=== PATIENT | male | born 1960 | race American Indian/Alaskan Native ===

== ENCOUNTER 2019-03-03 19:17 | Emergency (ER) | payer MEDICARE ==
[2019-03-03 20:06] VITALS: BP 167/111
--- NOTE | 2019-03-03 20:13 | Emergency Department Report ---
Blank Doc - Documentation Documentation: 58 y o male presents with right foot pain and swelling to feet wants to have it drained
[2019-03-03] MEDS ORDERED: ANTIBIOTIC OINT TP ONE (21:00)
[2019-03-03] MEDS ORDERED: BOOSTRIX IM ONE (21:00)
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
== END 2019-03-03 22:32 | disposition home or self-care (01) ==
LOC: ED 19:17
DX: S60.511A Abrasion of right hand, initial encounter (principal); S90.821A Blister (nonthermal), right foot, initial encounter; I10 Essential (primary) hypertension; F17.200 Nicotine dependence, unspecified, uncomplicated; X19.XXXA Contact with other heat and hot substances, initial encounter; Y93.01 Activity, walking, marching and hiking; Y92.89 Other specified places as the place of occurrence of the external cause; Y99.8 Other external cause status
CPT/HCPCS: 90471; 90715

== ENCOUNTER 2020-03-09 11:31 | Emergency (ER) | payer MEDICARE ==
[2020-03-09 11:53] VITALS: BP 132/87
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
== END 2020-03-09 16:47 | disposition home or self-care (01) ==
LOC: ED 11:31
DX: F99 Mental disorder, not otherwise specified (principal); I10 Essential (primary) hypertension; M19.90 Unspecified osteoarthritis, unspecified site; F17.200 Nicotine dependence, unspecified, uncomplicated; F41.9 Anxiety disorder, unspecified; Z79.899 Other long term (current) drug therapy
CPT/HCPCS: 99283

== ENCOUNTER 2020-08-04 06:50 | Emergency (ER) | payer MEDICARE ==
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
[2020-08-04 11:09] LABS: Basophils # (Auto) 0.1 K/mm3 (0.0-0.1); Basophils % (Auto) 0.7 % (0.0-1.8); Eosinophils % (Auto) 0.2 % (0.0-4.3); Hemoglobin 14.4 gm/dl (11.8-15.2); Lymphocytes # (Auto) 1.6 K/mm3 (1.2-5.4); Lymphocytes % (Auto) 17.9 % (13.4-35.0); Mean Corpuscular HGB Conc 34 % (32-34); Mean Corpuscular Volume 93 fl (84-94); Monocytes # (Auto) 0.7 K/mm3 (0.0-0.8); Platelet Count 188 K/mm3 (140-440); Red Cell Distribution Width 13.8 % (13.2-15.2)
[2020-08-04 11:16] LABS: INR 0.94 (0.87-1.13)
[2020-08-04 11:17] LABS: Partial Thromboplastin Time 28.8 Sec. (24.2-36.6)
--- NOTE | 2020-08-04 11:28 | XRay Report ---
XR chest routine 2V INDICATION / CLINICAL INFORMATION: Chest Pain. COMPARISON: 04/06/2020 FINDINGS: SUPPORT DEVICES: None. HEART /PULMONARY VASCULATURE: No significant abnormality. LUNGS / PLEURA: No significant pulmonary or pleural abnormality. No pneumothorax. ADDITIONAL FINDINGS: Scoliotic curvature with posterior fixation hardware demonstrates no gross compl ication. Large amount of stool present within the colon. IMPRESSION: 1. No acute chest process. 2. Large amount stool within the partially imaged colon, may reflect constipation. Signer Name: Jonas Villarreal MD Signed: 08/04/2020 11:24 AM Workstation Name: [id number]
[2020-08-04 12:38] LABS: BUN/Creatinine Ratio 12; Blood Urea Nitrogen 12 mg/dL (9-20); Calcium 9.5 mg/dL (8.4-10.2); Hemolysis Index 2
[2020-08-04 13:04] LABS: Creatine Kinase MB 7.8 ng/mL (0.0-4.0)
[2020-08-04 13:56] VITALS: BP 150/87
== END 2020-08-04 13:28 | disposition home or self-care (01) ==
LOC: ED 06:50
DX: R07.89 Other chest pain (principal); R01.1 Cardiac murmur, unspecified; I10 Essential (primary) hypertension; M19.91 Primary osteoarthritis, unspecified site; Z98.890 Other specified postprocedural states; Z79.1 Long term (current) use of non-steroidal anti-inflammatories (NSAID); Z79.899 Other long term (current) drug therapy
CPT/HCPCS: 36415; 71046; 80048; 82550; 82553; 83880; 84484; 85025; 85610; 85730; 93005

== ENCOUNTER 2021-03-06 13:46 | Emergency (ER) | payer MEDICARE ==
--- NOTE | 2021-03-06 14:37 | Emergency Department Report ---
ED Chest Pain HPI - General Chief Complaint: Chest Pain Stated Complaint: WEAKNESS,CHEST PAIN Time Seen by Provider: 03/06/21 14:01 Source: EMS Mode of arrival: Stretcher Limitations: No Limitations - History of Present Illness Initial Comments: This is a 60-year-old -[place] male presents to the emergency department via EMS from home with complaint of midsternal chest pain that started around 11 AM this morning. Patient says that he had a fall in which his legs "gave out." He denies hitting his head or any loss of consciousness. He denies any shortness of breath, fever, cough, back pain, lower extremity swelling. No recent travel or sick contacts at home. He has a past medical history of hypertension. Patient appears to have a psychiatric history as well. He is a tobacco smoker but denies any illicit drugs or any alcohol use/abuse. The patient has not taken anything, nor receive anything, for his symptoms prior to presentation today. He says that the chest pain is currently about a 7 out of 10 in intensity. No known aggravating or alleviating factors. Severity scale (0 -10): 0 - Related Data Previous Rx's Medication Instructions Recorded Last Taken Type Quetiapine Fumarate [SEROquel] 50 mg PO QHS 30 Days #30 tab 03/09/20 Unknown Rx Trazodone HCl [traZODone] 300 mg PO QHS 30 Days #30 tab 03/09/20 Unknown Rx Ibuprofen [Motrin 600 MG tab] 600 mg PO Q8H PRN #30 tablet 04/06/20 Unknown Rx traMADoL [Ultram 50 MG tab] 50 mg PO Q6HR PRN #12 tablet 04/06/20 Unknown Rx Allergies Allergy/AdvReac Type Severity Reaction Status Date / Time No Known Allergies Allergy Verified 04/06/20 14:23 Heart Score - HEART Score History: Slightly suspicious EKG: Normal Age: 45-65 Risk factors: 1-2 risk factors Troponin: < normal limit HEART Score: 2 - EKG Read Time Time EKG Completed: 16:07 EKG Read Time: 16:10 - Critical Actions Critical Actions: 0-3 pts:0.9-1.7%risk of adverse cardiac event.Candidate for discharge ED Review of Systems ROS: Stated complaint: WEAKNESS,CHEST PAIN Other details as noted in HPI Comment: All other systems reviewed and negative Constitutional: denies: chills, fever Eyes: denies: eye pain, vision change ENT: denies: ear pain, throat pain Respiratory: denies: cough, shortness of breath Cardiovascular: chest pain. denies: palpitations Gastrointestinal: denies: abdominal pain, vomiting Genitourinary: denies: dysuria, discharge Musculoskeletal: denies: back pain, arthralgia Skin: denies: rash, lesions Neurological: denies: headache, numbness ED Past Medical Hx - Past Medical History Hx Hypertension: Yes Hx Arthritis: Yes Additional medical history: Bilateral Cataract. anxiety - Surgical History Additional Surgical History: Back Surgery - Social History Smoking Status: Current Every Day Smoker - Medications Home Medications: Home Medications Medication Instructions Recorded Confirmed Last Taken Type Quetiapine Fumarate [SEROquel] 50 mg PO QHS 30 Days #30 tab 03/09/20 Unknown Rx Trazodone HCl [traZODone] 300 mg PO QHS 30 Days #30 tab 03/09/20 Unknown Rx Ibuprofen [Motrin 600 MG tab] 600 mg PO Q8H PRN #30 tablet 04/06/20 Unknown Rx traMADoL [Ultram 50 MG tab] 50 mg PO Q6HR PRN #12 tablet 04/06/20 Unknown Rx ED Physical Exam - General Limitations: No Limitations - Other Other exam information: GENERAL: The patient is well-developed well-nourished. HENT: Normocephalic. Atraumatic. Patient has moist mucous membranes. EYES: Extraocular motions are intact. NECK: Supple. Trachea is midline. CHEST/LUNGS: Clear to auscultation. There is no respiratory distress noted. HEART/CARDIOVASCULAR: Regular. There is no tachycardia. There is no murmur. ABDOMEN: Abdomen is soft, nontender. Patient has normal bowel sounds. There is no abdominal distention. SKIN: Skin is warm and dry. NEURO: The patient is awake, alert, and cooperative. The patient has no focal neurologic deficits. Normal speech. MUSCULOSKELETAL: There is no tenderness or deformity. There is no limitation range of motion. ED Course Vital Signs 03/06/21 03/06/21 03/06/21 14:11 14:12 14:15 Temperature 98.0 F Pulse Rate 70 73 73 Respiratory 21 18 11 L Rate Blood Pressure 120/78 Blood Pressure 120/78 [Left] O2 Sat by Pulse 96 98 98 Oximetry 03/06/21 03/06/21 03/06/21 15:01 16:45 17:31 Temperature Pulse Rate 58 L 73 53 L Respiratory 24 11 L 21 Rate Blood Pressure 112/74 112/74 112/74 Blood Pressure [Left] O2 Sat by Pulse 100 100 98 Oximetry 03/06/21 03/06/21 18:01 18:15 Temperature Pulse Rate 76 62 Respiratory 16 22 Rate Blood Pressure 115/76 130/83 Blood Pressure [Left] O2 Sat by Pulse 100 99 Oximetry DANTE score - Dante Score Age > 65: (0) No Aspirin use within the Past 7 Days: (0) No 3 or more CAD Risk Factors: (0) No 2 or more Angina events in past 24 hrs: (1) Yes Known CAD with more than 50% Stenosis: (0) No Elevated Cardiac Markers: (0) No ST Deviation Greater than 0.5mm: (0) No DANTE Score: 1 ED Medical Decision Making - Lab Data Result diagrams: 03/06/21 14:36 03/06/21 14:36 - EKG Data -: EKG Interpreted by Me EKG shows normal: sinus rhythm, axis, intervals, QRS complexes, ST-T waves (Nonspecific T waves) Rate: bradycardia (55 bpm) - EKG Data When compared to previous EKG there are: previous EKG unavailable Interpretation: other (Sinus bradycardia 55 bpm, normal axis, normal intervals, nonspecific T waves to the anterolateral leads. No ST elevation [place]) - Radiology Data Radiology results: image reviewed interpreted by me: Chest x-ray does not show any acute process. There are no pleural effusions, obvious pneumonia and there is no pneumothorax. No widened mediastinum. - Medical Decision Making This patient presents to the emergency department with a complaint of some midsternal chest pain that started this morning around 11 AM. He also said there was some fall in which his legs gave out, but there was no head trauma or any loss of consciousness. On examination the patient is resting comfortably. Normal sounding heart and lungs to auscultation. The patient does not appear in any respiratory or acute distress. EKG does not have any morphology consistent with ST elevation myocardial infarction. Chest x-ray does not show any pneumonia, pleural effusions, pneumothorax, widened mediastinum, or any other acute process. The patient's labs have been mostly unremarkable including CBC, metabolic panel, negative troponins x2 and a negative D-dimer. The patient was given a dose of Toradol and upon reevaluation is feeling greatly improved and says that his chest pain is completely resolved. He is low on the heart and DANTE score. For all these reasons the patient appears safe for discharge home at this time. His contact information has been sent over to the [facility] and [facility] [place], and someone from their office should be contacting him shortly for close outpatient follow-up as part of our [facility] low risk chest pain protocol. He will return to the emergency department with any worsening of his symptoms or with any acute distress. Patient ambulated out of the emergency department upon discharge and both appears and feels stable. Critical Care Time: No Critical care attestation.: If time is entered above; I have spent that time in minutes in the direct care of this critically ill patient, excluding procedure time. ED Disposition Clinical Impression: Chest pain Qualifiers: Chest pain type: unspecified Qualified Code(s): R07.9 - Chest pain, unspecified Disposition: TO HOME OR SELFCARE Is pt being admited?: No Condition: Stable Instructions: Nonspecific Chest Pain, Adult Additional Instructions: Please follow-up with a primary care physician in the next few days. I am sending your contact information over to the [facility] [place], and someone from their office should be contacting you shortly for close outpatient follow-up. Just in case, I am giving you a referral for one of their ornamental plaster sticker, Dr. Hawkins. Return to the emergency department with any worsening of your symptoms, new or concerning symptoms not addressed during this current emergency department visit, or with any acute distress. Referrals: MIRYAM CHING MD [Primary Care Provider] - 2-3 Days ARGENIS HAWKINS MD [Staff Physician] - 2-3 Days Time of Disposition: 18:02
--- NOTE | 2021-03-06 14:55 | XRay Report ---
CHEST 1 VIEW 03/06/2021 2:27 PM INDICATION / CLINICAL INFORMATION: CP. COMPARISON: 07/27/2020 FINDINGS: SUPPORT DEVICES: None. HEART / MEDIASTINUM: Mild cardiomegaly LUNGS / PLEURA: Mild increased since the is seen in left lower lung No pneumothorax. ADDITIONAL FINDINGS: Hardware throughout spine Signer Name: Saurav Hand MD Signed: 03/06/2021 2:51 PM Workstation Name: [id number]
[2021-03-06 14:58] LABS: Basophils % (Auto) 0.9 % (0.0-1.8); Eosinophils # (Auto) 0.1 K/mm3 (0.0-0.4); Hematocrit 42.2 % (35.5-45.6); Lymphocytes # (Auto) 1.6 K/mm3 (1.2-5.4); Lymphocytes % (Auto) 30.5 % (13.4-35.0); Mean Corpuscular HGB Conc 33 % (32-34); Mean Corpuscular Volume 96 fl (84-94); Monocytes # (Auto) 0.4 K/mm3 (0.0-0.8); Monocytes % (Auto) 8.1 % (0.0-7.3); Platelet Count 212 K/mm3 (140-440); Red Blood Count 4.42 M/mm3 (3.65-5.03); Red Cell Distribution Width 13.9 % (13.2-15.2)
[2021-03-06 15:09] LABS: INR 1.04 (0.87-1.13)
[2021-03-06 15:28] LABS: Alanine Aminotransferase 15 units/L (7-56); Albumin 3.8 g/dL (3.9-5); BUN/Creatinine Ratio 13; Blood Urea Nitrogen 14 mg/dL (9-20); Calcium 8.9 mg/dL (8.4-10.2); Hemolysis Index 3
[2021-03-06] MEDS ORDERED: KETOROLAC 30 MG/1 ML INJ IM ONE (16:27)
[2021-03-06 18:39] VITALS: BP 130/83
--- NOTE | 2021-03-07 09:15 | Electrocardiograph Report ---
[facility] Test Date: 2021-03-06 Test Time: 16:07:02 Pat Name: KATIE BALL Department: Room: Gender: M Chief Guard: DEBBY : 1960 Requested By: PAXTON SHAH Order Number: [id number] Reading MD: Pravin Hawkins Measurements Intervals [place] Rate: 55 P: 40 [place]: 152 QRS: -31 QRSD: 101 T: 74 QT: 464 QTc: 444 Interpretive Statements Sinus bradycardia Probable left atrial enlargement Left axis deviation Nonspecific T abnrm, anterolateral leads No previous ECG available for comparison Electronically Signed On 03-07-2021 9:15:07 EDT by Pravin Hawkins
== END 2021-03-06 18:40 | disposition home or self-care (01) ==
LOC: ED 13:46
DX: R07.89 Other chest pain (principal); I10 Essential (primary) hypertension; M19.91 Primary osteoarthritis, unspecified site; F17.200 Nicotine dependence, unspecified, uncomplicated; Z98.890 Other specified postprocedural states; Z79.1 Long term (current) use of non-steroidal anti-inflammatories (NSAID); Z79.899 Other long term (current) drug therapy
CPT/HCPCS: 36415; 71045; 80053; 84484; 85025; 85379; 85610; 93005; 99284; J1885

== ENCOUNTER 2021-03-26 13:57 | Emergency (ER) | payer MEDICARE ==
[2021-03-26] MEDS ORDERED: HYDROcodone/ACETAMINOPHEN 5-325 MG TAB PO ONE (14:55)
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
[2021-03-26 15:44] VITALS: BP 100/62
[2021-03-26 16:15] LABS: Basophils % (Auto) 0.6 % (0.0-1.8); Eosinophils % (Auto) 0.7 % (0.0-4.3); Hematocrit 42.4 % (35.5-45.6); Hemoglobin 14.4 gm/dl (11.8-15.2); Lymphocytes # (Auto) 1.6 K/mm3 (1.2-5.4); Lymphocytes % (Auto) 27.1 % (13.4-35.0); Mean Corpuscular HGB Conc 34 % (32-34); Mean Corpuscular Volume 95 fl (84-94); Monocytes # (Auto) 0.7 K/mm3 (0.0-0.8); Monocytes % (Auto) 11.9 % (0.0-7.3); Platelet Count 158 K/mm3 (140-440); Red Blood Count 4.44 M/mm3 (3.65-5.03); Red Cell Distribution Width 13.3 % (13.2-15.2)
[2021-03-26 16:20] LABS: Alanine Aminotransferase 20 units/L (7-56); Albumin 3.6 g/dL (3.9-5); BUN/Creatinine Ratio 12; Blood Urea Nitrogen 13 mg/dL (9-20); Calcium 8.6 mg/dL (8.4-10.2); Hemolysis Index 27
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
== END 2021-03-26 19:30 | disposition home or self-care (01) ==
LOC: ED 13:57
DX: S30.1XXA Contusion of abdominal wall, initial encounter (principal); S20.219A Contusion of unspecified front wall of thorax, initial encounter; S09.8XXA Other specified injuries of head, initial encounter; I10 Essential (primary) hypertension; M19.90 Unspecified osteoarthritis, unspecified site; Z98.890 Other specified postprocedural states; F17.290 Nicotine dependence, other tobacco product, uncomplicated; F31.9 Bipolar disorder, unspecified; V89.2XXA Person injured in unspecified motor-vehicle accident, traffic, initial encounter; Y93.89 Activity, other specified; Y92.89 Other specified places as the place of occurrence of the external cause; Y99.8 Other external cause status
CPT/HCPCS: 36415; 70450; 71260; 72125; 74177; 80053; 85025; 99284; Q9967; 80320; G0480

== ENCOUNTER 2021-04-06 22:44 | Emergency (ER) | payer MEDICARE ==
[2021-04-06] MEDS ORDERED: ASPIRIN 325 MG TAB PO ONE (23:23)
--- NOTE | 2021-04-07 00:09 | XRay Report ---
CHEST 2 VIEWS INDICATION / CLINICAL INFORMATION: chest pain. COMPARISON: 03/06/21 FINDINGS: SUPPORT DEVICES: None. HEART / MEDIASTINUM: No significant abnormality. LUNGS / PLEURA: No significant pulmonary or pleural abnormality. ADDITIONAL FINDINGS: Postoperative and posttraumatic changes of the thoracic spine and left shoulder girdle are unchanged. IMPRESSION: 1. No acute findings. No change. Signer Name: Carolyn Barksdale MD Signed: 04/07/2021 12:05 AM Workstation Name: [id number]
[2021-04-07 00:16] LABS: Basophils % (Auto) 0.5 % (0.0-1.8); Eosinophils % (Auto) 0.2 % (0.0-4.3); Hematocrit 42.8 % (35.5-45.6); Hemoglobin 14.4 gm/dl (11.8-15.2); Lymphocytes % (Auto) 32.6 % (13.4-35.0); Mean Corpuscular HGB Conc 34 % (32-34); Mean Corpuscular Volume 96 fl (84-94); Monocytes # (Auto) 0.7 K/mm3 (0.0-0.8); Monocytes % (Auto) 11.9 % (0.0-7.3); Platelet Count 185 K/mm3 (140-440); Red Blood Count 4.45 M/mm3 (3.65-5.03); Red Cell Distribution Width 13.7 % (13.2-15.2)
[2021-04-07 00:39] LABS: Alanine Aminotransferase 13 units/L (7-56); Albumin 4.1 g/dL (3.9-5); BUN/Creatinine Ratio 13; Blood Urea Nitrogen 15 mg/dL (9-20); Hemolysis Index 3
[2021-04-07 06:47] VITALS: BP 130/83
--- NOTE | 2021-04-08 10:38 | Electrocardiograph Report ---
[facility] Test Date: 2021-04-06 Test Time: 22:57:00 Pat Name: KATIE BALL Department: Room: Gender: M [employer] Specialist: BIPIN : [id number] Requested By: IVETH BHARDWAJ Order Number: [id number] Reading MD: Rigoberto Little Measurements Intervals [place] Rate: 67 P: 50 WY: 155 QRS: 52 QRSD: 96 T: 58 QT: 428 QTc: 454 Interpretive Statements Sinus rhythm Left atrial enlargement S1,S2,S3 pattern Compared to ECG 03/06/2021 16:07:02 Sinus bradycardia no longer present Left-axis deviation no longer present Electronically Signed On 04-08-2021 10:38:31 EDT by Rigoberto Little
== END 2021-04-07 06:30 | disposition left against medical advice (07) ==
LOC: ED 22:44
DX: R07.9 Chest pain, unspecified (principal); Z53.21 Procedure and treatment not carried out due to patient leaving prior to being seen by health care provider
CPT/HCPCS: 36415; 71046; 80053; 84484; 85025; 93005